=== PATIENT | female | born 1985 | race African-American/Black ===

== ENCOUNTER 2018-11-12 10:56 | Emergency (ER) | payer OTHER ==
[~2018-11-12] VITALS: Ht 152.4 cm; Wt 90.7 kg
[2018-11-12] MEDS ORDERED: PREDNISONE 10 M10 M1 PO (11:31)
[2018-11-12 11:38] VITALS: BP 110/87
== END 2018-11-12 11:39 | disposition home or self-care (01) ==
LOC: ER 10:56
DX: L50.9 Urticaria, unspecified (principal)